=== PATIENT | male | born 1990 | race Caucasian/White ===

== ENCOUNTER 2019-12-09 16:36 | Emergency (ER) | payer MEDICAID, OTHER ==
[~2019-12-09] VITALS: Ht 181.6 cm; Wt 63.0 kg
[~2019-12-09 16:36] MED LIST: ALBU6.7H9 INH; CIPR500T24 PO; DICY10CA88 PO; DIPH-681 PO; OMEP20CA4 PO; ONDA8TAB6 PO; SODI104S3 NS
[2019-12-09 17:08] VITALS: BP 101/60
--- NOTE | 2019-12-09 18:25 | NUR ---
pt tired of waiting. lwob reported to battery charger.
== END 2019-12-09 18:32 | disposition home or self-care (01) ==
LOC: ER 16:37
DX: M54.6 Pain in thoracic spine (principal); Z53.21 Procedure and treatment not carried out due to patient leaving prior to being seen by health care provider; W18.49XA Other slipping, tripping and stumbling without falling, initial encounter; Y93.89 Activity, other specified; Y92.69 Other specified industrial and construction area as the place of occurrence of the external cause; Y99.9 Unspecified external cause status

== ENCOUNTER 2020-08-30 13:25 | Emergency (ER) | payer OTHER ==
[~2020-08-30] VITALS: Ht 180.3 cm; Wt 68.2 kg
[2020-08-30 13:27] VITALS: BP 127/52
== END 2020-08-30 13:48 | disposition home or self-care (01) ==
LOC: ER 13:26
DX: J06.9 Acute upper respiratory infection, unspecified (principal); R06.02 Shortness of breath; R51.9 Headache, unspecified; R53.83 Other fatigue; R53.1 Weakness; Z20.828 Contact with and (suspected) exposure to other viral communicable diseases; F12.90 Cannabis use, unspecified, uncomplicated; Z98.890 Other specified postprocedural states; Z79.2 Long term (current) use of antibiotics; Z79.899 Other long term (current) drug therapy
CPT/HCPCS: 36415; 87635; 99283

== ENCOUNTER 2020-10-23 11:48 | Emergency (ER) | payer OTHER ==
[~2020-10-23] VITALS: Ht 182.9 cm; Wt 75.0 kg
== END 2020-10-23 12:47 | disposition home or self-care (01) ==
LOC: ER 11:49
DX: R05 Cough (principal); R06.02 Shortness of breath; R09.89 Other specified symptoms and signs involving the circulatory and respiratory systems; Z20.828 Contact with and (suspected) exposure to other viral communicable diseases; F12.90 Cannabis use, unspecified, uncomplicated; Z98.890 Other specified postprocedural states; Z79.2 Long term (current) use of antibiotics; Z79.899 Other long term (current) drug therapy
CPT/HCPCS: 36415; 87635; 99283

== ENCOUNTER 2021-04-18 09:54 | Emergency (ER) | payer MEDICAID, OTHER ==
[~2021-04-18] VITALS: Ht 182.9 cm; Wt 72.7 kg
[2021-04-18 10:02] VITALS: BP 110/71
[2021-04-18] MEDS ORDERED: PRED10TA PO (10:39)
[2021-04-18] MEDS ORDERED: VALA100031 PO (10:39)
== END 2021-04-18 11:06 | disposition home or self-care (01) ==
LOC: ER 09:55
DX: B02.9 Zoster without complications (principal); F12.10 Cannabis abuse, uncomplicated; Z79.899 Other long term (current) drug therapy
CPT/HCPCS: 99283

== ENCOUNTER 2022-04-22 10:11 | Emergency (ER) | payer SELFPAY ==
[~2022-04-22] VITALS: Ht 180.3 cm; Wt 72.7 kg
[~2022-04-22 10:11] MED LIST changes: +PRED10TA PO; +VALA100031 PO
[2022-04-22 10:46] LABS: BASOPHILS % (AUTO) 0.4 % (0-1); EOSINOPHILS # (AUTO) 0.1 X10'3 (0-0.9); EOSINOPHILS % (AUTO) 0.8 % (0-6); HEMATOCRIT 43.9 % (42.0-52.0); HEMOGLOBIN 15.1 g/dl (14.0-17.9); LYMPHOCYTES # (AUTO) 3.3 X10'3 (1.1-4.8); LYMPHOCYTES % (AUTO) 36.6 % (21-51); MEAN CORPUSCULAR HEMOGLOBIN 30.6 PG (27.0-31.0); MEAN CORPUSCULAR HGB CONC 34.3 g/dL (33.0-36.5); MEAN CORPUSCULAR VOLUME 89.3 FL (78-98); MEAN PLATELET VOLUME 8.1 FL (7.4-10.4); MONOCYTES # (AUTO) 0.6 X10'3 (0-0.9); NEUTROPHILS # (AUTO) 4.9 X10'3 (1.8-7.7); NEUTROPHILS % (AUTO) 55.2 % (42-75); PLATELET COUNT 351 X10'3 (140-440); RED BLOOD COUNT 4.92 X10'6 (4.70-6.10); RED CELL DISTRIBUTION WIDTH 14.4 % (11.5-14.5); WHITE BLOOD COUNT 8.9 X10'3 (4.5-11.0)
[2022-04-22] MEDS ORDERED: ondansetron 4mg rapidly disintigrating tab PO STA (11:06)
[2022-04-22 11:09] LABS: ALANINE AMINOTRANSFERASE 27 U/L (12-78); ALBUMIN/GLOBULIN RATIO 1.2 (1.1-1.5); ALKALINE PHOSPHATASE 56 IU/L (46-116); ANION GAP 12 (8-16); ASPARTATE AMINO TRANSFERASE 17 U/L (10-37); BILIRUBIN,TOTAL 0.6 MG/DL (0.1-1.0); BLOOD UREA NITROGEN 6 MG/DL (7-18); BUN/CREATININE RATIO 5.7 (5.4-32.0); CALCIUM 8.9 MG/DL (8.5-10.1); CHLORIDE 103 MMOL/L (99-107); CREATININE 1.05 MG/DL (0.60-1.10); GLUCOSE 160 MG/DL (70-104); LIPASE 61 U/L (73-393); POTASSIUM 3.5 MMOL/L (3.5-5.1); SODIUM 138 MMOL/L (135-145); TOTAL CARBON DIOXIDE 23.1 MMOL/L (24-32); TOTAL PROTEIN 7.3 G/DL (6.4-8.2); eGFR 81 ML/MIN
[2022-04-22] MEDS ORDERED: famotidine 20mg tablet PO ONE (11:10)
[2022-04-22] MEDS ORDERED: LIDOcaine Viscous 15ml cup MM ONE (11:10)
[2022-04-22] MEDS ORDERED: ONDA4TAB12 PO (11:28)
[2022-04-22] MEDS ORDERED: FAMO20TA44 PO (11:28)
[2022-04-22 11:29] VITALS: BP 115/80
[2022-04-22 11:34] LABS: CLARITY,URINE CLEAR (Clear); COLOR,URINE YELLOW (Yellow); GLUCOSE, URINE NEGATIVE (Neg); KETONES,URINE NEGATIVE (Neg); LEUKOCYTE ESTERASE ,URINE NEGATIVE (Neg); NITRITES, URINE NEGATIVE (Neg); OCCULT BLOOD,URINE NEGATIVE (Neg); PROTEIN,URINE NEGATIVE (Neg); UROBILINOGEN,URINE 0.2 E.U/dL (0.2-1.0)
[2022-04-22 11:43] LABS: UA COLLECTION TYPE CLN CATCH MIDSTREAM
== END 2022-04-22 11:40 | disposition home or self-care (01) ==
LOC: ER 10:12
DX: K29.00 Acute gastritis without bleeding (principal); F17.200 Nicotine dependence, unspecified, uncomplicated; F12.90 Cannabis use, unspecified, uncomplicated; Z98.890 Other specified postprocedural states; Z79.899 Other long term (current) drug therapy
CPT/HCPCS: 36415; 80053; 81003; 83690; 85025; 99284

== ENCOUNTER 2024-05-27 11:00 | Emergency (ER) | payer OTHER ==
[~2024-05-27] VITALS: Ht 182.9 cm; Wt 62.3 kg
[~2024-05-27 11:00] MED LIST changes: +ALBU6.7H14 INH; -ALBU6.7H9 INH; +FAMO20TA44 PO; +ONDA-243 PO
[2024-05-27 11:35] LABS: BASOPHILS % (AUTO) 0.5 % (0-1); EOSINOPHILS % (AUTO) 0.3 % (0-6); HEMATOCRIT 41.4 % (42.0-52.0); HEMOGLOBIN 13.8 g/dl (14.0-17.9); LYMPHOCYTES # (AUTO) 2.9 X10'3 (1.1-4.8); LYMPHOCYTES % (AUTO) 33.1 % (21-51); MEAN CORPUSCULAR HEMOGLOBIN 29.1 PG (27.0-31.0); MEAN CORPUSCULAR HGB CONC 33.3 g/dL (33.0-36.5); MEAN CORPUSCULAR VOLUME 87.4 FL (78-98); MEAN PLATELET VOLUME 7.4 FL (7.4-10.4); MONOCYTES # (AUTO) 0.7 X10'3 (0-0.9); MONOCYTES % (AUTO) 7.9 % (2-12); NEUTROPHILS # (AUTO) 5.1 X10'3 (1.8-7.7); NEUTROPHILS % (AUTO) 58.2 % (42-75); PLATELET COUNT 360 X10'3 (140-440); RED BLOOD COUNT 4.74 X10'6 (4.70-6.10); RED CELL DISTRIBUTION WIDTH 13.7 % (11.5-14.5); WHITE BLOOD COUNT 8.7 X10'3 (4.5-11.0)
[2024-05-27 11:46] LABS: BILIRUBIN,URINE NEGATIVE (Neg); CLARITY,URINE CLEAR (Clear); COLOR,URINE YELLOW (Yellow); GLUCOSE, URINE NEGATIVE (Neg); KETONES,URINE NEGATIVE (Neg); LEUKOCYTE ESTERASE ,URINE NEGATIVE (Neg); NITRITES, URINE NEGATIVE (Neg); OCCULT BLOOD,URINE NEGATIVE (Neg); PROTEIN,URINE NEGATIVE (Neg); UROBILINOGEN,URINE 0.2 E.U/dL (0.2-1.0)
[2024-05-27 11:48] LABS: ALANINE AMINOTRANSFERASE 23 U/L (12-78); ALBUMIN 3.8 G/DL (3.4-5.0); ALKALINE PHOSPHATASE 72 IU/L (46-116); ANION GAP 7 (8-16); ASPARTATE AMINO TRANSFERASE 12 U/L (10-37); BILIRUBIN,TOTAL 0.6 MG/DL (0.1-1.0); BLOOD UREA NITROGEN 8 MG/DL (7-18); BUN/CREATININE RATIO 7.3 (10.0-20.0); CALCIUM 9.2 MG/DL (8.5-10.1); CHLORIDE 102 MMOL/L (99-107); CREATININE 1.09 MG/DL (0.60-1.10); GLUCOSE 90 MG/DL (70-104); LIPASE 38 U/L (16-77); POTASSIUM 4.3 MMOL/L (3.5-5.1); SODIUM 137 MMOL/L (135-145); TOTAL CARBON DIOXIDE 27.6 MMOL/L (24-32); TOTAL PROTEIN 7.7 G/DL (6.4-8.2); eCRCL 83 ML/MIN; eGFR 77 ML/MIN
[2024-05-27 11:51] LABS: UA COLLECTION TYPE CLN CATCH MIDSTREAM
[2024-05-27 12:00] VITALS: BP 120/80; O2SAT 99
[2024-05-27] MEDS: normal saline 1000ML IV soln IVB ONE (12:23)
[2024-05-27] MEDS: metroNIDAZOLE-Flagyl 500mg/NS 100 ML IV ONE (12:23)
[2024-05-27] MEDS: ondansetron/PF 4mg/2ml inj IV ONE (12:23)
[2024-05-27 13:01] VITALS: PULSE 57; RESP 16; TEMP 98.3
[2024-05-27] MEDS ORDERED: ONDA-243 PO (13:45)
[2024-05-27] MEDS ORDERED: METR-159 PO (13:45)
== END 2024-05-27 13:52 | disposition home or self-care (01) ==
LOC: ER 11:00
DX: R10.9 Unspecified abdominal pain (principal); F12.90 Cannabis use, unspecified, uncomplicated; Z79.899 Other long term (current) drug therapy; Z79.2 Long term (current) use of antibiotics
CPT/HCPCS: 36415; 80053; 81003; 83690; 85025; 96365; 96375; 99284; J2405; J3490; J7030